=== PATIENT | male | born 1930 | race Caucasian/White ===

== ENCOUNTER 2016-07-01 01:58 | Emergency (ER) | payer MEDICARE, MEDICAID ==
[2016-07-01] MEDS ORDERED: CELLULOSE,OXIDIZED (SURGICEL) 1 PAD TOP ONE (02:22)
[2016-07-01 02:25] VITALS: TEMP 98.6; BMI 36.8
[2016-07-01] MEDS ORDERED: 2-OCTYL CYANOACRYLATE PEN TOP ONE (02:34)
--- NOTE | 2016-07-01 02:37 | EDPRACDOC ---
- General Information Chief Complaint: Wound Information Source: Patient Mode of Arrival:: Car - History of Present Illness Onset: guard captain HPI: PT STATES HE BIT HIS BOTTOM LIP EARLIER TONIGHT. STATES HE WOKE UP AND IT WAS BLEEDING PROFUSELY. PT IS CURRENTLY ON BLOOD THINNERS. - Location BOTTOM LIP Mechanism: Reports: Other (BITE) - Tetanus Status Last Tetanus: No - Pain Pain Severity: None Bleeding: Reports: Controlled Associated Signs & Symptoms: Reports: None ED Past Medical History - History Reviewed Yes Nurses notes reviewed and agree except as marked - Patient Medical History Cardiac History: Reports: Atrial Fibrillation, Hypertension, Congestive Heart Failure Psychological History: Denies: Depression Systemic History: Reports: Diabetes - Social Medical History Smoking Status: Current some day smoker EDM Review of Systems - Review of Systems ROS Negative Except as Marked: Yes All systems reviewed and were negative except as marked - Physical Exam Constitutional: Alert Oriented to: Time, Person, Place Last recorded Vital Signs: Last Vital Signs Temp 98.6 F 07/01/16 02:21 Pulse 77 07/01/16 02:21 Resp 20 07/01/16 02:21 BP 176/96 07/01/16 02:21 Pulse Ox 92 07/01/16 02:21 Oxygen Pulse Oxygen Saturation 92 O2 Device Room Air Oxygen Flow Rate Fraction of Inspired Oxygen ( FIO2) - HEENT Head: Normal ( normocephalic) Eye Exam: Normal (PERRL, EOMI, Sclera white) Oropharynx: Normal (Pharynx:Moist without exudate,Gums-no swelling) Nose: No Symptoms Reported (septum midline) Neck: Normal (FROM, trachea at midline) - Respiratory/Cardiovascular Respiratory: Normal - CTA (BBS clear to auscultation without adventitious sounds ) Cardiovascular: Normal (RRR without murmur, gallop or rub) - GI Auscultation: Normal (NABS) Palpation: Normal (Soft,No rebound or guarding, non distended) Tenderness: Non tender Jurado's Sign: Negative Rectal Exam: Deferred - Musculoskeletal Back: Normal (Non-Tender) Extremities: Normal (Normal tone, Pulses 2+ No cyanosis or edema, FROM) - Integumentary Skin: Normal, Warm, Dry Lymphatics: Normal (no adenopathy) - Neurologic Memory Impaired: Normal Motor Function: Normal (Normal tone, Pulses 2+ No cyanosis or edema, FROM) Cranial Nerve: Normal (CN II-X11 intact sensation, strength 5/5) Cerebellar: Normal Mood Description: Normal Perception: Normal ED Procedures - Suture/Laceration BOTTOM LIP Wound Length (cm): 0.25 Wound's Depth, Shape: superficial Wound Explored: clean Wound Repaired With: Dermabond Sterile Dressing Applied?: No Splint Applied?: No Sling Applied?: No - Differential Diagnosis Laceration Decision Time to Discharge: 02:52 - Departure Disposition: Home Condition: Stable Final Diagnosis: Laceration - injury Instructions: Laceration (ED), Skin Adhesive Care (ED) Education/Counseling Given To: Patient Education/Counseling Given Regarding: Diagnosis, Treatment, Prognosis, Follow Up Referrals: Curt Maynard II, MD [Staff Physician] - One Week Additional Instructions: DO NOT PICK AT THE GLUE, LET IT FALL OFF ON ITS OWN
[2016-07-01 03:20] VITALS: BP 156/78; PULSE 74
== END 2016-07-01 03:15 | disposition home or self-care (01) ==
LOC: ED 01:58
DX: S01.511A Laceration without foreign body of lip, initial encounter (principal); X58.XXXA Exposure to other specified factors, initial encounter; I48.91 Unspecified atrial fibrillation; I10 Essential (primary) hypertension; I50.9 Heart failure, unspecified; E11.9 Type 2 diabetes mellitus without complications; Z72.0 Tobacco use; Z79.01 Long term (current) use of anticoagulants
CPT/HCPCS: 12011; 99283; A9270; J3490